=== PATIENT | female | born 1960 | race Caucasian/White ===

== ENCOUNTER 2019-12-26 06:25 | Emergency (ER) | payer OTHER ==
[~2019-12-26] VITALS: Ht 177.8 cm; Wt 90.9 kg
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
[2019-12-26] MEDS ORDERED: MORPHINE SULFATE 4 MG/ML VIAL. IV ONE (07:15)
[2019-12-26] MEDS ORDERED: diazePAM 5 MG TABLET PO ONE (07:15)
[2019-12-26] MEDS ORDERED: cloNIDine HCL 0.1 MG TABLET PO ONE (07:15)
--- NOTE | 2019-12-26 08:10 | RAD ---
CERVICAL SPINE 2-3V DATE: 12/26/2019 7:05 AM INDICATION: Reason: LOWER NECK PAIN, RADIATING TO RIGHT SHOULDER AND ARM / Spl. Instructions: / History: COMPARISON: None. FINDINGS: The cervical spine is visualized to the level of the cervicothoracic junction on the lateral views. Bones/Alignment: No evidence of acute fracture. There is no listhesis. Normal alignment of the lateral masses of C1 on C2. Joints: Mild to moderate degenerative disc disease. The facets are normally aligned. Soft tissue: No significant prevertebral soft tissue swelling. IMPRESSION: No evidence of acute fracture. Mild to moderate cervical spondylosis. Electronically signed by: Tavo Mcgrath MD (12/26/2019 8:08 AM) [id number]
[2019-12-26] MEDS ORDERED: NAPR-682 PO (09:04)
[2019-12-26] MEDS ORDERED: TRAM50TA PO (09:04)
[2019-12-26] MEDS ORDERED: CYCL10TA2 PO (09:04)
[2019-12-26 09:09] VITALS: BP 123/73
== END 2019-12-26 09:21 | disposition home or self-care (01) ==
LOC: ER 06:25
DX: M54.12 Radiculopathy, cervical region (principal); M25.511 Pain in right shoulder; E11.9 Type 2 diabetes mellitus without complications; I10 Essential (primary) hypertension; F17.200 Nicotine dependence, unspecified, uncomplicated; Z90.710 Acquired absence of both cervix and uterus
CPT/HCPCS: 72040; 96374; 99285; J2270